=== PATIENT | female | born 1945 | race Caucasian/White ===

== ENCOUNTER → 2023-10-04 | Outpatient (CLI) | payer MEDICARE, OTHER | END | disposition home or self-care (01) | LOC: RAD 12:42 | PROVIDERS: ATTEND Family Medicine | DX: J43.9 Emphysema, unspecified (principal); R91.1 Solitary pulmonary nodule; J98.11 Atelectasis; J98.4 Other disorders of lung | CPT/HCPCS: 71250 ==

== ENCOUNTER → 2024-03-10 | Outpatient (CLI) | payer MEDICARE, OTHER ==
[~2024-03-10] MED LIST: ALBU8HFA INH; AMLO5TAB15 PO; ASTRAGALUS PO; CHOL50004 PO; CITA40TA22 PO; COLLAGEN PO; CYCL-395 PO; ELDERBERRY PO; FLUT16SP11 BOTHNARES; GLUC1TAB60 PO; GLUC1TAB75 PO; LEVA15HF4 INH; LEVO112T5 PO; METAMUCIL PO; PROP15DR EACHEYE; PSYL3.4P5 PO; SMARTER GREENS PO; TRAZ150T78 PO; XAL0.005OS EACHEYE; [UNRECOGNIZED DRUG - OTHER] PO
== END | disposition home or self-care (01) ==
LOC: MRI 10:32
PROVIDERS: ATTEND Surgery
DX: I67.82 Cerebral ischemia (principal); R91.1 Solitary pulmonary nodule
CPT/HCPCS: 70553

== ENCOUNTER 2024-10-28 09:27 | Emergency (ER) | payer MEDICARE, OTHER ==
[~2024-10-28] VITALS: Ht 154.9 cm; Wt 65.5 kg
[~2024-10-28 09:27] MED LIST changes: -GLUC1TAB75 PO; -LEVA15HF4 INH; -METAMUCIL PO
[2024-10-28] MEDS ORDERED: NAPR-1170 PO (10:26)
[2024-10-28] MEDS: ketorolac trometh 15mg/ml vial 15 MG/ML ML IM ONE (10:35)
[2024-10-28 10:42] VITALS: BP 108/76; PULSE 84; RESP 16; TEMP 97.8; O2SAT 98
== END 2024-10-28 10:43 | disposition home or self-care (01) ==
LOC: ER 09:27
DX: M25.552 Pain in left hip (principal); M19.90 Unspecified osteoarthritis, unspecified site; Z88.1 Allergy status to other antibiotic agents
CPT/HCPCS: 96372; 99283; J1885

== ENCOUNTER 2025-02-10 12:16 | Emergency (ER) | payer MEDICARE, OTHER ==
[~2025-02-10] VITALS: Ht 154.9 cm; Wt 63.6 kg
[~2025-02-10 12:16] MED LIST changes: +NAPR-1170 PO
[2025-02-10 12:19] VITALS: BP 126/60; PULSE 104; O2SAT 94
--- NOTE | 2025-02-10 13:03 | RADIOLOGY REPORT ---
CLINICAL INDICATION: LT.KNEE PAIN TECHNIQUE: Left DI KNEE, COMP 4 VW MIN Comparison: None FINDINGS/IMPRESSION: : There is no evidence of acute fracture or dislocation. Moderate joint effusion. 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 Joint space chondrocalcinosis.
--- NOTE | 2025-02-10 13:18 | Physician Documentation ---
History of Present Illness ~ Chief Complaint: Knee Pain Stated Complaint: L KNEE PAIN Time Seen by MD: 12:33 HPI This is an 79-year-old female who presents with two days of pain and swelling to her left knee, patient reports the knee is very painful to bend. Patient reports no known injury to the knee. Patient reports no fever, shortness of breath, or chest pain. Tetanus witin 5 years: No Medication Reconciliation Allergies: Coded Allergies: adhesive (Verified Allergy, Unknown, TEARS SKIN, 10/28/24) cefaclor (Verified Allergy, Unknown, SOB, 10/28/24) chlorhexidine (Verified Allergy, Unknown, RASH, 10/28/24) Scheduled Amlodipine Besylate (Amlodipine Besylate), 1 TAB PO DAILY, (Reported) Cholecalciferol (Vitamin D3) (Vitamin D3), 1 CAP PO DAILY, (Reported) Citalopram Hydrobromide (Celexa), 1 TAB PO DAILY, (Reported) Diclofenac Sodium (Diclofenac Sodium), 1 APPLIC TOP Q12H Fluticasone Propionate (Fluticasone Propionate), 2 SPRAYS BOTHNARES BID, (Reported) Glucosamine/Chondro Chavarria A (Glucosamine-Chondroitin Tab), 2 TAB PO DAILY, (Reported) Latanoprost (XALATAN ophth drops), 1 DROP EACHEYE HS, (Reported) Levothyroxine Sodium (Levothyroxine Sodium), 112 MCG PO DAILY, (Reported) Naproxen (Naproxen), 1 TAB PO Q12H Propylene Glycol/Peg 400 (Systane 0.3-0.4% Eye Drops), 1 DROP EACHEYE QAM, (Reported) Psyllium Husk/Aspartame (Metamucil Fiber Singles Packet), 3.4 GM PO HS, (Reported) Trazodone Hcl (Trazodone Hcl), 150 MG PO HS, (Reported) [Astragalus], 2 TAB PO DAILY, (Reported) [Collagen], 2 TAB PO DAILY, (Reported) [Elderberry], 2 TAB PO DAILY, (Reported) [Lung Bronc Sinus], 2 TAB PO DAILY, (Reported) [Smarter Greens], 2 TAB PO DAILY, (Reported) Scheduled PRN Cyclobenzaprine HCl (Cyclobenzaprine HCl), 1 TAB PO HS PRN for muscle spasms, (Reported) Hydrocodone Bit/Acetaminophen 5/325 MG ([place] 5/325 MG), 1 TAB PO Q6H PRN for pain albuterol inhaler (Pro-Air Inhaler), 2 PUFFS INH Q6H PRN for wheezing, (Reported) Past Medical History Past Medical History: Arthritis Review of Systems ROS Left knee pain and swelling as stated above in the HPI, otherwise all systems are reviewed and negative. Physical Exam Vital Signs: Temperature: 98.1, Source: Temporal, Heart Rate: 104, Respiratory Rate: 18, BP: 126/60, Pulse Oximetry: 94, Weight: 63.640 Oxygen Flow Rate: 0 Physical Exam VITALS: Reviewed and as above. GENERAL: Alert, nontoxic appearing, no apparent distress. RESPIRATORY: No increased work of breathing, no respiratory distress, speaking in full clear sentences MUSCULOSKELETAL: Swelling to anterior proximal left knee with tenderness to the area long with tenderness to posterior left knee, no lateral or medial tenderness to palpation, left knee is tender with any range of motion. Left upper calf mildly tender to palpation SKIN: No erythema or ecchymosis to left knee. NEURO: Sensation intact in distal lower extremities Progress Results/Orders Results/Orders Orders - JUN CRISTOBAL MD Knee, Complete (02/10/25 12:21) Completed Orders - JUN CRISTOBAL MD Knee, Complete (02/10/25 12:21) Vital Signs 02/10/25 02/10/25 02/10/25 02/10/25 12:19 13:39 17:34 17:41 Temp 98.1 98.1 Pulse 104 Resp 18 16 16 B/P (MAP) 126/60 Pulse Ox 94 O2 Flow Rate 0 Laboratory Tests Test 02/10/25 13:26 02/10/25 15:01 White Blood Count 10.6 Red Blood Count 3.82 L Hemoglobin 12.4 Hematocrit 37.3 Mean Corpuscular Volume 97.8 Mean Corpuscular Hemoglobin 32.5 H Mean Corpuscular Hemoglobin Concent 33.3 Red Cell Distribution Width 15.1 H Platelet Count 215 Mean Platelet Volume 8.7 Neutrophils (%) (Auto) 89.0 H Lymphocytes (%) (Auto) 4.6 L Monocytes (%) (Auto) 6.0 Eosinophils (%) (Auto) 0 Basophils (%) (Auto) 0.4 Neutrophils # (Auto) 9.4 H Lymphocytes # (Auto) 0.5 L Monocytes # (Auto) 0.6 Eosinophils # (Auto) 0.0 Basophils # (Auto) 0.0 CBC Comment Erythrocyte Sedimentation Rate 53 H Sodium Level 134 L Potassium Level 4.0 Chloride Level 98 L Carbon Dioxide Level 26.4 Anion Gap 10 Blood Urea Nitrogen 22 H Creatinine 1.46 H Estimated GFR/1.73 m2 34 BUN/Creatinine Ratio 15.1 Glucose Level 100 Calcium Level 9.9 C-Reactive Protein 19.11 H Albumin 3.9 Chemistry Comments Synovial Fluid Source Left knee Synovial Fluid Color Yellow Synovial Fluid Appearance Cloudy Synovial Fluid WBC 07088 Synovial Fluid RBC 1000 Synovial Fluid Neutrophils 78 H Synovial Fluid Lymphocytes 2 Synovial Fluid Monocytes 20 H Synovial Fluid Crystal Quantity Moderate Synovial Fld Crystal Identification Ca pyrophosphate Synovial Fluid Fibrin Clot None seen Synovial Fluid Glucose 75 Synovial Fluid Total Protein 4.8 Synovial Fluid Comment See note Microbiology Date/Time Source Procedure Growth Status 02/10/25 15:01 Knee Left Synovial Fluid Routine Culture - Preliminary Resulted EKG/XRAY/CT/US/VASC/MRI Bone/Soft Tissue X-Ray (Ext.) : Additional Comment CLINICAL INDICATION: LT.KNEE PAIN TECHNIQUE: Left DI KNEE, COMP 4 VW MIN Comparison: None FINDINGS/IMPRESSION: : There is no evidence of acute fracture or dislocation. Moderate joint effusion. 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 Joint space chondrocalcinosis. Electronically Signed by:MALCOLM WOODSON MD Date & Time: 02/10/25 130 Dictated by: MALCOLM WOODSON MD Dictation date and time: 02/10/25 1301 I have reviewed and agree with the radiology report. I have reviewed and interpreted the imaging as: No fracture or dislocation Vascular : Impression Left lower extremity venous duplex Clinical History: Pain Comparison: None Technique: Duplex Doppler evaluation of the deep venous system of the left lower extremity from the common femoral vein to the popliteal vein including color Doppler and spectral/pulsed waveform analysis was performed. Findings: The common femoral vein demonstrates appropriate compressibility and waveform variability. There is compressibility/patency of the great saphenous vein at the proximal thigh. The femoral vein demonstrates appropriate compressibility and waveform variability. The deep femoral vein demonstrates appropriate compressibility and waveform v ariability. The popliteal vein demonstrates appropriate compressibility and waveform variability. There is normal compressibility at the tibioperoneal trunk. Impression: No left femoropopliteal venous thrombosis. Contralateral common femoral vein is patent. Left popliteal fossa cyst measures 2.7 x 1.7 cm. Dictated by:MALCOLM WOODSON MD Dictation date and time:02/10/251535 Electronically Signed by: MALCOLM WOODSON MD Date and Time: 02/10/251535 Medical Decision Making Findings This 79-year-old female presented with left knee pain and swelling for the last two days, due to exquisite pain with micro movement of the joint there was some suspicion for septic arthritis in lab work initiated including arthrocentesis of the joint, lab work did not demonstrate evidence of infection and arthrocentesis results were consistent with pseudogout. X-ray of the joint did not demonstrate evidence of fracture or dislocation. Due to posterior knee and proximal calf tenderness a vascular ultrasound was obtained demonstrating no evidence of DVT, however there was a Alvarez's cyst which patient has been advised to follow up primary care about. Patient is otherwise well-appearing, remainder of physical exam benign including limb neurovascularly intact distal to swelling, vital signs stable. Patient medicated for pain in department reporting adequate pain control. I discussed with patient the option for admission for pain control and possible physical therapy though patient reports that her pain is well controlled and she would prefer outpatient management. Patient is appropriate for outpatient follow up. Patient advised to follow up with primary care as soon as possible and provided return to care precautions, patient verbalized understanding of follow up instructions and return to care precautions. I have discussed with the patient the risks of addiction and overdose associated with use of opioids, including the increased risk of addiction to an opioid for an individual who is suffering from both mental and substance abuse disorders. I have discussed with the patient the danger of taking an opioid with a benzodiazepine, alcohol, or another central nervous system depressant. Knee Diff Dx:Considerations: Include: Abrasion, Arthritis, Contusion, DJD, Fracture-femur, Fracture-fibula, Fracture-patella, Fracture-tibia, Hematoma, Meniscus injury, Neurovascular injury, Open fracture, Septic, Sprain Departure Disposition: 01 HOME / SELF CARE / HOMELESS Impression: Primary Impression: Effusion of knee Qualified Codes: M25.462 - Effusion, left knee Condition: Improved Discharge Instructions: Knee Effusion Additional Instructions: Keep the area wrapped with the jun wrap, ice the area for comfort, elevated whenever possible. Please use the topical pain medication on the knee. Please use the other pain medications as described below. Please follow up with your primary care provider in the next few days. Please return to the emergency department for any new or worsening concerning symptoms. You may use [id number] Tylenol as needed for pain as directed by the [id number] packaging. For breakthrough pain you may use the prescribed [place], be aware that the [place] also contains the same active ingredient as Tylenol, so do not take more than the recommended amount of Tylenol as directed on the [id number] packaging. You have been prescribed an opioid medication, there are risks of addiction and overdose associated with the use of opioids. The risk of addiction to an opioid for increases for those suffering both from mental health and substance use disorders. The use of an opioid while taking other central nervous system depressants including but not limited to benzodiazepines or alcohol, or other opioids increases the risk of serious side effects that can include overdose or respiratory depression that can lead to serious injury or . Referrals: NO PRIMARY CARE PROVIDER (PCP) Prescriptions Hydrocodone Bit/Acetaminophen 5/325 MG ([place] 5/325 MG) 5 Mg/325 Mg Tablet 1 TAB PO Q6H PRN for pain for 3 Days, #12 TAB Prov: ELANA SOTO 02/10/25 Diclofenac Sodium (Diclofenac Sodium) 3 % Gel..gram. 1 APPLIC TOP Q12H for 14 Days, #100 GM 0 Refills Prov: ELANA SOTO 02/10/25 Education Educated: Patient Educated regarding: diagnosis, treatment, prognosis, need for follow up Signature Scribe Signature: No scribe Attestation: The note accurately reflects work and decisions made by me.JAMES Danielson 02/10/25 21:25 ELANA SOTO Feb 10, 2025 13:18 JUN CRISTOBAL MD Feb 12, 2025 07:36
[2025-02-10] MEDS: HYDROcodone/acetaminophen 5mg/325mg tablet PO ONE ×2 (13:39→17:34)
[2025-02-10 13:48] LABS: BASOPHILS % (AUTO) 0.4 % (0-1); EOSINOPHILS % (AUTO) 0 % (0-6); HEMATOCRIT 37.3 % (35.0-45.0); HEMOGLOBIN 12.4 g/dl (12.0-16.0); LYMPHOCYTES # (AUTO) 0.5 X10'3 (1.1-4.8); LYMPHOCYTES % (AUTO) 4.6 % (21-51); MEAN CORPUSCULAR HEMOGLOBIN 32.5 PG (27.0-31.0); MEAN CORPUSCULAR HGB CONC 33.3 g/dL (33.0-36.5); MEAN CORPUSCULAR VOLUME 97.8 FL (78-98); MEAN PLATELET VOLUME 8.7 FL (7.4-10.4); MONOCYTES # (AUTO) 0.6 X10'3 (0-0.9); NEUTROPHILS # (AUTO) 9.4 X10'3 (1.8-7.7); PLATELET COUNT 215 X10'3 (140-440); RED BLOOD COUNT 3.82 X10'6 (4.20-5.60); RED CELL DISTRIBUTION WIDTH 15.1 % (11.5-14.5); WHITE BLOOD COUNT 10.6 X10'3 (4.5-11.0)
[2025-02-10 14:09] LABS: ALBUMIN 3.9 G/DL (3.4-5.0); ANION GAP 10 (8-16); BLOOD UREA NITROGEN 22 MG/DL (7-18); BUN/CREATININE RATIO 15.1 (10.0-20.0); C-REACTIVE PROTEIN 19.11 MG/DL (0.0-0.5); CALCIUM 9.9 MG/DL (8.5-10.1); CHLORIDE 98 MMOL/L (99-107); CREATININE 1.46 MG/DL (0.40-0.90); GLUCOSE 100 MG/DL (70-104); SODIUM 134 MMOL/L (135-145); TOTAL CARBON DIOXIDE 26.4 MMOL/L (24-32); eCRCL 23 ML/MIN; eGFR 34 ML/MIN
[2025-02-10] MEDS: LIDOcaine 1% W/epiNEPHrine 1:100,000 20ml vial SQ ONE (14:32)
--- NOTE | 2025-02-10 15:38 | VASCULAR REPORT ---
Left lower extremity venous duplex Clinical History: Pain Comparison: None Technique: Duplex Doppler evaluation of the deep venous system of the left lower extremity from the common femor al vein to the popliteal vein including color Doppler and spectral/pulsed waveform analysis was perfo rmed. Findings: The common femoral vein demonstrates appropriate compressibility and waveform variability. There is compressibility/patency of the great saphenous vein at the proximal thigh. The femoral vein demonstrates appropriate compressibility and waveform variability. The deep femoral vein demonstrates appropriate compressibility and waveform variability. The popliteal vein demonstrates appropriate compressibility and waveform variability. There is normal compressibility at the tibioperoneal trunk. Impression: No left femoropopliteal venous thrombosis. Contralateral common femoral vein is patent. Left popliteal fossa cyst measures 2.7 x 1.7 cm.
[2025-02-10 16:35] LABS: TOTAL PROTEIN,SYNOVIAL FLUID 4.8 GM/DL
[2025-02-10 16:39] LABS: COLOR,SYNOVIAL FLUID YELLOW
[2025-02-10 16:40] LABS: APPEARANCE,SYNOVIAL FLUID CLOUDY; CRYSTAL ID, SYN FLD CA PYROPHOSPHATE; LYMPHOCYTES,SYNOVIAL FLUID 2 % (0-75); MONOCYTES,SYNOVIAL FLUID 20 % (0-0); NEUTROPHILS,SYNOVIAL FLUID 78 % (0-25); SYN RBC 1000 /CU MM (0); SYN WBC 27000 /CU MM (0-200)
[2025-02-10 16:41] LABS: GLUCOSE,SYNOVIAL FLUID 75 MG/DL; SYNOVIAL FLUID CRYSTALS QT MODERATE
[2025-02-10] MEDS ORDERED: PRED20TA PO (17:03)
[2025-02-10] MEDS ORDERED: HYDR-3965 PO (17:03)
[2025-02-10] MEDS ORDERED: DICL100G31 TOP (17:03)
[2025-02-10] MEDS ORDERED: predniSONE 20 mg tablet PO ONE (17:05)
[2025-02-10 17:34] VITALS: RESP 16
[2025-02-10 17:41] VITALS: TEMP 98.1
== END 2025-02-10 17:42 | disposition home or self-care (01) ==
LOC: ER 12:16
DX: M25.462 Effusion, left knee (principal); Z88.1 Allergy status to other antibiotic agents
CPT/HCPCS: 36415; 73564; 80048; 82945; 84157; 85025; 85651; 86140; 87070; 89051; 89060; 93971; 99284; A6402; A6449; Z7610